=== PATIENT | male | born 1990 | race Caucasian/White ===

== ENCOUNTER 2018-09-13 09:52 | Emergency (ER) | payer BC ==
[2018-09-13 10:18] VITALS: BP 189/96; PULSE 72; RESP 16; TEMP 97.8
--- NOTE | 2018-09-13 10:40 | ED ---
Upper Extremity HPI - General Chief Complaint: Extremity Injury, Upper Stated Complaint: lt elbow injury Time Seen by Provider: 09/13/18 10:13 Source: patient, RN notes reviewed, old records reviewed Mode of arrival: ambulatory Limitations: no limitations - History of Present Illness Initial Comments: Patient is a 28-year-old male presenting to emergency department today for evaluation for left elbow pain. Patient reports that 3 days ago he slipped in the shower, tried to catch himself. At that time when he cut himself he reached with his left arm and pulled his left elbow. Patient reports that that time he felt a pop. Patient states that since Thursday he has had increased swelling, limited range of motion. Patient states that he is unable to fully extend the elbow or fully flex the elbow. Patient relates that he had no previous injuries. He is right-handed. - Related Data Home Medications Medication Instructions Recorded Confirmed Acetaminophen Tab [Tylenol Tab] 500 mg PO Q6HR PRN 09/13/18 09/13/18 Folic Acid 0.4 mg PO DAILY 09/13/18 09/13/18 Vitamin B Complex 1 cap PO DAILY 09/13/18 09/13/18 levETIRAcetam [Keppra] 1,000 mg PO DAILY 09/13/18 09/13/18 Previous Rx's Medication Instructions Recorded Ibuprofen 600 mg PO TID #20 tablet 09/13/18 Allergies Allergy/AdvReac Type Severity Reaction Status Date / Time No Known Allergies Allergy Verified 09/13/18 10:42 Review of Systems ROS Statement: Those systems with pertinent positive or pertinent negative responses have been documented in the HPI. ROS Other: All systems not noted in ROS Statement are negative. Past Medical History Past Medical History: Seizure Disorder History of Any Multi-Drug Resistant Organisms: None Reported Past Surgical History: Bariatric Surgery Additional Past Surgical History / Comment(s): GASTRIC SLEEVE Past Psychological History: No Psychological Hx Reported Smoking Status: Never smoker Past Alcohol Use History: Occasional Past Drug Use History: None Reported General Exam - General Exam Comments Initial Comments: Patient is a 28-year-old male. Alert and oriented. No distress. Limitations: no limitations General appearance: alert, in no apparent distress Head exam: Present: atraumatic, normocephalic, normal inspection Eye exam: Present: normal appearance, PERRL, EOMI. Absent: scleral icterus, conjunctival injection, periorbital swelling ENT exam: Present: normal exam Neck exam: Present: normal inspection. Absent: tenderness, meningismus, lymphadenopathy Respiratory exam: Present: normal lung sounds bilaterally. Absent: respiratory distress, wheezes, rales, rhonchi, stridor Cardiovascular Exam: Present: regular rate, normal rhythm, normal heart sounds. Absent: systolic murmur, diastolic murmur, rubs, gallop, clicks GI/Abdominal exam: Present: soft, normal bowel sounds. Absent: distended, tenderness, guarding, rebound, rigid Left Upper Arm exam: Present: normal inspection, full ROM Elbow exam: Present: tenderness (Patient has tenderness over the radial head.). Absent: normal inspection, full ROM (He has limited range of motion, extension up to 120 of flexion to 45.) Forearm Wrist exam: Present: normal inspection, full ROM Hand Wrist exam: Present: normal inspection, full ROM Neuro motor exam: Present: wrist extension intact, thumb opposition intact, thumb IP flexion intact, thumb adduction intact, fingers 2-5 abduction intact Vascular: Present: normal capillary refill Back exam: Present: normal inspection Neurological exam: Present: alert, oriented X3, CN II-XII intact Psychiatric exam: Present: normal affect, normal mood Skin exam: Present: warm, dry, intact, normal color. Absent: rash Course Vital Signs 09/13/18 10:15 Temperature 97.8 F Pulse Rate 72 Respiratory 16 Rate Blood Pressure 189/96 O2 Sat by Pulse 97 Oximetry Medical Decision Making - Medical Decision Making [id number] male presents emergency department today with left elbow pain. Patient has evidence of minor sail sign over the left elbow on lateral view. X- rays shows evidence of retained soft tissue foreign body from previous laceration. Patient at this time will be placed in a splint. Advised to take Motrin Tylenol for pain. Discussed following up with orthopedic. All questions answered. - Radiology Data Radiology results: report reviewed X-ray shows evidence of soft tissue foreign body within the posterior arm. Swelling joint space swelling noted at the elbow. Since concern for radial head injury. Disposition Clinical Impression: Injury of left elbow, Left radial head fracture Disposition: HOME SELF-CARE Condition: Good Instructions (If sedation given, give patient instructions): Elbow Sprain (ED), Elbow Fracture (ED) Additional Instructions: Patient has had close follow-up with disability specialist. Remain in splint until seen by or so. Return to the emergency department if any alarming signs or symptoms occur. Prescriptions: Ibuprofen 600 mg PO TID #20 tablet Is patient prescribed a controlled substance at d/c from ED?: No Referrals: None,Stated [Primary Care Provider] - 1-2 days Willie Roberson DO [Doctor of Osteopathic Medicine] - 1-2 days Time of Disposition: 11:42
[2018-09-13] MEDS ORDERED: ACET/COD 300 MG/30 MG STARTER PACK 6 TAB BTL PO STA (11:44)
--- NOTE | 2018-09-13 13:28 | XR ---
EXAMINATION TYPE: XR elbow complete LT DATE OF EXAM: 09/13/2018 CLINICAL HISTORY: pain TECHNIQUE: Frontal, lateral and oblique images of the left elbow are obtained. COMPARISON: None. FINDINGS: There is no acute fracture/dislocation evident of the elbow. Pathologic anterior and poste rior fat pads are noted. Radiopaque density overlies the soft tissue posteriorly measuring 8 mm. Donna elate clinically. IMPRESSION: Pathologic anterior and posterior fat pads without displaced fracture identified at this time. ICD 10 NO FRACTURE, INITIAL EVALUATION
== END 2018-09-13 12:19 | disposition home or self-care (01) ==
LOC: EC 09:52
DX: S52.122A Displaced fracture of head of left radius, initial encounter for closed fracture (principal); M79.5 Residual foreign body in soft tissue; G40.909 Epilepsy, unspecified, not intractable, without status epilepticus; Z98.84 Bariatric surgery status; Z79.899 Other long term (current) drug therapy; W01.198A Fall on same level from slipping, tripping and stumbling with subsequent striking against other object, initial encounter; Y92.002 Bathroom of unspecified non-institutional (private) residence as the place of occurrence of the external cause; Y93.E1 Activity, personal bathing and showering
CPT/HCPCS: 99284

== ENCOUNTER 2019-04-17 21:33 | Emergency (ER) | payer BC ==
[2019-04-17 21:41] VITALS: BP 139/84; PULSE 80; RESP 18; TEMP 97.9
[2019-04-17] MEDS ORDERED: KETOROLAC 60 MG/2 ML VIAL IM STA (22:21)
--- NOTE | 2019-04-17 22:28 | ED ---
Back Pain HPI - General Chief Complaint: Back Pain/Injury Stated Complaint: Low back pain Time Seen by Provider: 04/17/19 21:50 Source: patient Limitations: no limitations - History of Present Illness Initial Comments: Patient is a 29-year-old male presenting to emergency Department with complaints of low back pain that has been increasing over the past week. 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 Patient states he started having some mild discomfort in soreness after that and then the last 2 days he has been in the hospital with his having a baby. Patient states a constant up and down lifting turning has made his low back pain worse. Patient states he feels like it just feels really tight and its radiating across both sides. He denies any injuries or falls. Denies any previous surgeries. He denies fever, chills. Patient states he did take a few ibuprofens which is did help a little bit with his pain. Patient has no other complaints at this time. Upon on arrival to the ER his vital signs are stable. - Related Data Home Medications Medication Instructions Recorded Confirmed Acetaminophen Tab [Tylenol Tab] 500 mg PO Q6HR PRN 09/13/18 09/13/18 Folic Acid 0.4 mg PO DAILY 09/13/18 09/13/18 Vitamin B Complex 1 cap PO DAILY 09/13/18 09/13/18 levETIRAcetam [Keppra] 1,000 mg PO DAILY 09/13/18 09/13/18 Previous Rx's Medication Instructions Recorded Ibuprofen 600 mg PO TID #20 tablet 09/13/18 Cyclobenzaprine [Flexeril] 5 mg PO BID #10 tablet 04/17/19 Allergies Allergy/AdvReac Type Severity Reaction Status Date / Time No Known Allergies Allergy Verified 09/13/18 10:42 Review of Systems ROS Statement: Those systems with pertinent positive or pertinent negative responses have been documented in the HPI. ROS Other: All systems not noted in ROS Statement are negative. Past Medical History Past Medical History: Seizure Disorder History of Any Multi-Drug Resistant Organisms: None Reported Past Surgical History: Bariatric Surgery Additional Past Surgical History / Comment(s): GASTRIC SLEEVE Past Psychological History: No Psychological Hx Reported Smoking Status: Never smoker Past Alcohol Use History: Occasional Past Drug Use History: None Reported General Exam - General Exam Comments Initial Comments: GENERAL: Well-appearing, well-nourished and in no acute distress. HEAD: Atraumatic, normocephalic. EYES: Pupils equal round and reactive to light, extraocular movements intact, sclera anicteric, conjunctiva are normal. ENT: TMs normal, nares patent, oropharynx clear without exudates. Moist mucous membranes. NECK: Normal range of motion, supple without lymphadenopathy or JVD. LUNGS: Breath sounds clear to auscultation bilaterally and equal. No wheezes rales or rhonchi. HEART: Regular rate and rhythm without murmurs, rubs or gallops. ABDOMEN: Soft, nontender, normoactive bowel sounds. No guarding, no rebound. No masses appreciated. : Deferred EXTREMITIES: Normal range of motion, no pitting or edema. No clubbing or cyanosis. Patient has full trunk range of motion however increased pain with trunk flexion. Patient has 5 out of 5 strength of the lower extremities. Sensation is equal in bilateral lower extremities. NEUROLOGICAL: Normal speech, normal gait. PSYCH: Normal mood, normal affect. SKIN: Warm, Dry, normal turgor, no rashes or lesions noted. Limitations: no limitations Course Vital Signs 04/17/19 21:35 Temperature 97.9 F Pulse Rate 80 Respiratory 18 Rate Blood Pressure 139/84 O2 Sat by Pulse 100 Oximetry Medical Decision Making - Medical Decision Making Patient is a 29-year-old male presenting with low back pain has been increasing over the past week. He has no red flag symptoms. His vitals are stable. I discussed with patient is most likely a lumbar strain. Patient will be given Toradol the ER. He will continue with Motrin and a trial of Flexeril for discomfort. He will also use heat to the area. He is stable for discharge and he is in agreement with this plan of care. Patient will follow up with PCP as symptoms persist. Return parameters were discussed with the patient and he verbalized understanding. Disposition Clinical Impression: Strain of lumbar region Disposition: HOME SELF-CARE Condition: Stable Instructions (If sedation given, give patient instructions): Acute Low Back Pain (ED) Additional Instructions: Please return to the Emergency Department if symptoms worsen or any other concerns. Continue with ibuprofen for discomfort. Trial of muscle relaxers as needed for spasms. Use heat to the area as well as gentle stretching as discussed. Follow-up with PCP if symptoms persist. Prescriptions: Cyclobenzaprine [Flexeril] 5 mg PO BID #10 tablet Is patient prescribed a controlled substance at d/c from ED?: No Referrals: None,Stated [Primary Care Provider] - 1-2 days
== END 2019-04-17 22:34 | disposition home or self-care (01) ==
LOC: EC 21:33
DX: S39.012A Strain of muscle, fascia and tendon of lower back, initial encounter (principal); G40.909 Epilepsy, unspecified, not intractable, without status epilepticus; Z79.899 Other long term (current) drug therapy; Z98.84 Bariatric surgery status; X58.XXXA Exposure to other specified factors, initial encounter
CPT/HCPCS: 99283; 96372; J1885

== ENCOUNTER 2019-07-30 15:53 | Emergency (ER) | payer BC ==
[2019-07-30 16:10] VITALS: RESP 18
--- NOTE | 2019-07-30 16:26 | ED ---
Lower Extremity Injury HPI - General Chief Complaint: Extremity Injury, Lower Stated Complaint: rt thumb lac Time Seen by Provider: 07/30/19 16:15 Source: patient Mode of arrival: ambulatory Limitations: no limitations - History of Present Illness Initial Comments: Patient is a 29-year-old male presenting to emergency Department with right thumb pain. Patient reports she was using a hammer when she accidentally hit his right thumb. Reports small bleeding from the area of injury. Patient reports she has full range of motion. States there is no ecchymotic or erythematous regions. Denies any numbness or tingling. Denies taking medication to alleviate the symptoms. Tetanus is up-to-date. - Related Data Home Medications Medication Instructions Recorded Confirmed Acetaminophen Tab [Tylenol Tab] 500 mg PO Q6HR PRN 09/13/18 09/13/18 Folic Acid 0.4 mg PO DAILY 09/13/18 09/13/18 Vitamin B Complex 1 cap PO DAILY 09/13/18 09/13/18 levETIRAcetam [Keppra] 1,000 mg PO DAILY 09/13/18 09/13/18 Previous Rx's Medication Instructions Recorded Ibuprofen 600 mg PO TID #20 tablet 09/13/18 Cyclobenzaprine [Flexeril] 5 mg PO BID #10 tablet 04/17/19 Allergies Allergy/AdvReac Type Severity Reaction Status Date / Time No Known Allergies Allergy Verified 07/30/19 16:10 Review of Systems ROS Statement: Those systems with pertinent positive or pertinent negative responses have been documented in the HPI. ROS Other: All systems not noted in ROS Statement are negative. Past Medical History Past Medical History: Seizure Disorder History of Any Multi-Drug Resistant Organisms: None Reported Past Surgical History: Bariatric Surgery Additional Past Surgical History / Comment(s): GASTRIC SLEEVE Past Psychological History: No Psychological Hx Reported Smoking Status: Never smoker Past Alcohol Use History: Occasional Past Drug Use History: None Reported General Exam Limitations: no limitations General appearance: alert, in no apparent distress, obese Head exam: Present: atraumatic, normocephalic, normal inspection Eye exam: Present: normal appearance, PERRL, EOMI ENT exam: Present: normal exam, normal oropharynx, mucous membranes moist Neck exam: Present: normal inspection, full ROM Respiratory exam: Present: normal lung sounds bilaterally. Absent: respiratory distress, wheezes Cardiovascular Exam: Present: regular rate, normal rhythm, normal heart sounds Extremities exam: Present: full ROM, tenderness (Tenderness at the site of injury), normal capillary refill, other (+2 ulnar and radial pulses bilateral.). Absent: normal inspection (Small laceration measuring approximately 1 cm on the dorsal aspect of the interphalangeal joint of the first right digit. No ecchymotic regions noted. No loss of sensation.) Back exam: Present: normal inspection, full ROM Neurological exam: Present: alert, oriented X3 Psychiatric exam: Present: normal affect, normal mood Skin exam: Present: warm, dry, intact, normal color Course Vital Signs 07/30/19 07/30/19 16:06 17:43 Temperature 98.1 F 97.6 F Pulse Rate 57 L 64 Respiratory 18 18 Rate Blood Pressure 126/71 137/98 O2 Sat by Pulse 97 98 Oximetry Procedures - Laceration Laceration #1 Consent Obtained: verbal consent Indication: laceration Site: hand Size (cm): 1 Description: irregular, clean Depth: simple, single layer Sedation/Analgesia: none Anesthetic Used: lidocaine 1% Anesthesia Technique: local infiltration Amount (mls): 2 Pre-repair: irrigated extensively, deep structures intact Type of Sutures: nylon Size of Sutures: 4-0 Number of Sutures: 1 Technique: simple, interrupted Patient Tolerated Procedure: well, no complications Medical Decision Making - Medical Decision Making Patient is a 29-year-old male presenting to emergency Department with a chief complaint of right thumb pain. On exam patient has a small laceration but is neurovascularly intact of the right thumb. Patient has full range of motion. X-ray reveals no bony injuries. Laceration site was repaired with one suture. Patient advised to return to emergency department in 7-10 days for suture removal. Return parameters thoroughly discussed patient was understanding and agreeable. Case discussed with physician. Disposition Clinical Impression: Crush injury to thumb, Laceration of right thumb Disposition: HOME SELF-CARE Condition: Stable Instructions (If sedation given, give patient instructions): Care For Your Stitches (DC), Laceration (DC) Additional Instructions: Return to emergency Department 10 days for suture removal. Is patient prescribed a controlled substance at d/c from ED?: No Referrals: None,Stated [Primary Care Provider] - 1-2 days Time of Disposition: 17:35
[2019-07-30] MEDS ORDERED: HYDROcodone/APAP 5-325MG 1 EACH TAB PO STA (16:27)
[2019-07-30] MEDS ORDERED: LIDOCAINE 1% INJ 10MG/ML (20 ML MDV) SQ ONE (16:31)
--- NOTE | 2019-07-30 17:40 | XR ---
EXAMINATION TYPE: XR hand limited RT DATE OF EXAM: 07/30/2019 COMPARISON: NONE HISTORY: Crushed right thumb with a hammer TECHNIQUE: 2 views FINDINGS: Metacarpals are intact. I see no fracture nor dislocation. The thumb appears intact. IMPRESSION: No acute abnormality of the right hand. No fracture.
[2019-07-30 17:46] VITALS: BP 137/98; PULSE 64; TEMP 97.6
== END 2019-07-30 17:47 | disposition home or self-care (01) ==
LOC: EC 15:53
DX: S61.011A Laceration without foreign body of right thumb without damage to nail, initial encounter (principal); G40.909 Epilepsy, unspecified, not intractable, without status epilepticus; Z79.899 Other long term (current) drug therapy; Z98.84 Bariatric surgery status; W23.0XXA Caught, crushed, jammed, or pinched between moving objects, initial encounter; Y92.89 Other specified places as the place of occurrence of the external cause
CPT/HCPCS: 73120; 99283; 12001; J2001